=== PATIENT | female | born 1940 ===

== ENCOUNTER → 2024-09-21 16:30 | Outpatient (REF) | payer OTHER, SELFPAY ==
[2024-09-22 12:43] LABS: Urine Character Cloudy (Clear)
[2024-09-22 12:52] LABS: Urine Red Blood Cell >100 /HPF (0-2)
== END ==
LOC: OLABN 16:30
PROVIDERS: ATTENDING PHYSICIAN Student in an Organized Health Care Education/Training Program
DX: R31.9 Hematuria, unspecified (principal)
CPT/HCPCS: 81003; 81015; 87086

== ENCOUNTER → 2024-09-24 10:13 | Outpatient (REF) | payer OTHER, MEDICARE, SELFPAY ==
[2024-09-24 11:09] LABS: Hematocrit 36.7 % (37.0-47.0); Hemoglobin 10.1 g/dL (12.0-16.0); Mean Corp Hgb Conc. 27.5 g/dL (33.0-37.0); Mean Corpuscular Volume 80.3 fL (81.0-99.0); Nucleated Red Blood Cells % 0 %; Platelet Count 313 10^3/uL (130-400); Red Cell Dist. Width 23.4 % (11.5-14.5)
[2024-09-24 11:19] LABS: Blood Urea Nitrogen 17 mg/dl (7-17); Calcium 9.0 mg/dl (8.4-10.2); Carbon Dioxide 29 mmol/L (22-30); Chloride 104 mmol/L (98-107); Glucose 85 mg/dl (70-99); Magnesium 2.1 mg/dl (1.6-2.3); Potassium 4.7 mmol/L (3.5-5.1); Sodium 139 mmol/L (135-145); eGFR 49.24
[2024-09-24 12:41] LABS: Anisocytosis Slight; Hypochromasia Slight; Normal RBC Morphology No; Ovalocytes 1+
== END ==
LOC: OLABN 10:13
PROVIDERS: ATTENDING PHYSICIAN Student in an Organized Health Care Education/Training Program
DX: I10 Essential (primary) hypertension (principal); E83.42 Hypomagnesemia
CPT/HCPCS: 36415; 80048; 83735; 85025